=== PATIENT | male | born 1995 | race Caucasian/White ===

== ENCOUNTER 2019-12-01 23:37 | Emergency (ER) | payer SELFPAY ==
[2019-12-01] MEDS ORDERED: Diphtheria,Pertussis(Acell),Tetanus Vaccine 0.5 ML SDV IM ONE (23:53)
[2019-12-01] MEDS ORDERED: Bacitracin Oint 1 GM U/D Packet TOP ONE (23:56)
--- NOTE | 2019-12-02 00:23 | EDM.PDOC ---
ED HPI GENERAL MEDICAL PROBLEM - General Chief Complaint: General Stated Complaint: FISH HOOK IN RIGHT HAND Time Seen by Provider: 12/01/19 23:55 Source of Information: Reports: Patient History Limitations: Reports: Other (no old records) - History of Present Illness INITIAL COMMENTS - FREE TEXT/NARRATIVE: 24 yo male presents with a fish hook imbedded in his R palm. Is uncertain about tetanus. 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) (none) - Related Data Allergies Allergy/AdvReac Type Severity Reaction Status Date / Time No Known Allergies Allergy Verified 12/01/19 23:43 Home Meds: Home Meds FLUoxetine HCl [Prozac] 20 mg PO DAILY 12/01/19 [History] buPROPion [Wellbutrin] 75 mg PO BEDTIME 12/01/19 [History] Past Medical History Psychiatric History: Reports: Anxiety, Depression - Infectious Disease History Infectious Disease History: Reports: Chicken Pox Social & Family History - Tobacco Use Smoking Status *Q: Current Every Day Smoker Years of Tobacco use: 5 Packs/Tins Daily: 0.5 - Recreational Drug Use Recreational Drug Use: Yes Drug Use in Last 12 Months: Yes Recreational Drug Type: Reports: Benzodiazepines, Cocaine, LSD (Acid), Methamphetamine, Oxycodone, Xanax Recreational Drug Use Frequency: Not Used In Over 4 Months ED ROS GENERAL - Review of Systems Review Of Systems: See Below Constitutional: Reports: No Symptoms Skin: Reports: Wound (puncture R palm) Neurological: Reports: No Symptoms ED EXAM, GENERAL - Physical Exam Exam: See Below Exam Limited By: No Limitations General Appearance: Alert, WD/WN, No Apparent Distress Extremities: Other (fish hook R palm) Neurological: Alert, Oriented, CN II-XII Intact, Normal Cognition, No Motor/Sensory Deficits Psychiatric: Normal Affect, Normal Mood Skin Exam: Warm, Dry, Normal Color, No Rash, Wound/Incision (single bob of a treble hook imbedded in R palm ). No: Intact ED GENERAL MEDICAL PROCEDURES - Additional/Other Procedure(s) Other (Free Text) Procedure(s): Local infiltration of 1% lidocaine. Prep of area with an antiseptic swab was performed. The bob of the hook was covered with a #18 g needle and backed out. The hand was washed with soap and water and a dressing was applied. Course - Vital Signs Last Recorded V/S: Last Vital Signs Temp 36.4 C 12/01/19 23:51 Pulse 74 12/01/19 23:51 Resp 18 12/01/19 23:51 BP 130/77 12/01/19 23:51 Pulse Ox 97 12/01/19 23:51 - Orders/Labs/Meds Orders: Active Orders 24 hr Category Date Time Status Vaccines to be Administered [RC] PER UNIT ROUTINE Care 12/01/19 23:54 Active Meds: Medications Discontinued Medications Generic Name Dose Route Start Last Admin Trade Name Martinq PRN Reason Stop Dose Admin Bacitracin 1 dose 12/01/19 23:56 12/02/19 00:02 Bacitracin Oint 1 Gm TOP 12/01/19 23:57 1 dose ONETIME ONE Administration Diphtheria/Tetanus/Acell Pertussis 0.5 ml 12/01/19 23:53 12/02/19 00:00 Adacel IM 12/01/19 23:54 0.5 ml .ONCE ONE Administration Lidocaine HCl 5 ml 12/01/19 23:54 12/02/19 00:00 Xylocaine-Mpf 1% INJECT 12/01/19 23:55 5 ml ONETIME ONE Administration Departure - Departure Time of Disposition: 00:22 Disposition: Home, Self-Care 01 Condition: Good Clinical Impression: Fish hook injury of hand Qualifiers: Encounter type: initial encounter Laterality: right Qualified Code(s): S69.91XA - Unspecified injury of right wrist, hand and finger(s), initial encounter - Discharge Information *PRESCRIPTION DRUG MONITORING PROGRAM REVIEWED*: No *COPY OF PRESCRIPTION DRUG MONITORING REPORT IN PATIENT SHALOM: No Referrals: PCP,None [Primary Care Provider] - Additional Instructions: Clean wound twice daily with soap and water. Dry. Apply antibiotic ointment and a new dressing. Keep wound clean for 3 days. Recheck for signs of infection. Acetaminophen for pain relief. Sepsis Event Note (ED) - Evaluation Sepsis Screening Result: No Definite Risk - Focused Exam Vital Signs: Vital Signs Temp Pulse Resp BP Pulse Ox 12/01/19 23:51 36.4 C 74 18 130/77 97 12/01/19 23:50 36.4 C 74 18 130/77 97 - My Orders Last 24 Hours: My Active Orders 12/01/19 23:54 Vaccines to be Administered [RC] PER UNIT ROUTINE - Assessment/Plan Last 24 Hours: My Active Orders 12/01/19 23:54 Vaccines to be Administered [RC] PER UNIT ROUTINE
== END 2019-12-02 00:31 | disposition home or self-care (01) ==
LOC: JP.ED 23:37
DX: S60.551A Superficial foreign body of right hand, initial encounter (principal); F41.9 Anxiety disorder, unspecified; F32.9 Major depressive disorder, single episode, unspecified; F17.210 Nicotine dependence, cigarettes, uncomplicated; Z79.899 Other long term (current) drug therapy; Z23 Encounter for immunization; W45.8XXA Other foreign body or object entering through skin, initial encounter
CPT/HCPCS: 90471; 90715; 99283; J2001